=== PATIENT | female | born 1995 | race Caucasian/White ===

== ENCOUNTER 2017-02-18 09:15 | Emergency (ER) | payer OTHER ==
[2017-02-18 09:27] VITALS: BP 133/101; PULSE 118; RESP 18; TEMP 97.5; O2SAT 98
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
[2017-02-18] MEDS ORDERED: LEVONORGESTREL 1.5 MG TAB PO ONE (10:49)
== END 2017-02-18 11:15 | disposition home or self-care (01) ==
LOC: EEVIPCON 09:15
DX: T74.21XA Adult sexual abuse, confirmed, initial encounter (principal)